=== PATIENT | male | born 1940 | race Caucasian/White ===

== ENCOUNTER → 2020-07-22 | Outpatient (CLI) | payer MEDICARE, BC ==
--- NOTE | 2020-07-22 15:17 | EEG ---
ELECTROENCEPHALOGRAM REPORT DATE OF SERVICE: 07/22/2020 PREAMBLE: This is an 80-year-old male who presents with altered awareness. The patient lost consciousness when walking with his a couple of weeks ago. He sometimes gets confused. 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 This study is performed to evaluate for any epileptiform activity. CURRENT MEDICATIONS: Labetalol, insulin, hydralazine, Plavix, sitagliptin, Mysoline, metformin, leuprolide. EEG FINDINGS: This is a 21-channel routine EEG recording in a patient utilizing 10-20 international system with referential and bipolar montages. Background consists of well developed, well regulated, moderate voltage activity in 8-9 hertz alpha. Background is posterior- dominant and reactive to eye opening and closing. Photic driving response was not seen. Different stages of sleep were not seen. No focal or generalized epileptiform activity was seen. EKG rhythm lead showed no significant arrhythmia. IMPRESSION: This is a normal awake EEG. No focal, lateralized or epileptiform activity was seen. A normal EEG does not rule out seizure disorder. If your suspicion for seizures is high, suggest prolonged, sleep-deprived EEG. MMODL / IJN: [id number] /
== END | disposition home or self-care (01) ==
LOC: NEUROMAIN 07:53
DX: R40.4 Transient alteration of awareness (principal)
CPT/HCPCS: 95816